=== PATIENT | female | born 1990 ===

== ENCOUNTER 2018-10-26 15:17 | Emergency (ER) | payer MEDICAID, OTHER ==
[2018-10-26 15:26] VITALS: RESP 18; O2SAT 99
[2018-10-26 15:36] VITALS: BMI 28.0
[2018-10-26] MEDS ORDERED: Lidocaine 1% Inj (20ml) IJ STA (15:51)
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
[2018-10-26 17:13] VITALS: BP 118/66; PULSE 72; TEMP 98
== END 2018-10-26 17:13 | disposition home or self-care (01) ==
LOC: ED 15:17
DX: S61.215A Laceration without foreign body of left ring finger without damage to nail, initial encounter (principal); X99.1XXA Assault by knife, initial encounter